=== PATIENT | male | born 1955 | race Caucasian/White ===

== ENCOUNTER 2021-02-24 13:07 | Outpatient (CLI) | payer BC, SELFPAY ==
[2021-02-24 15:09] LABS: SARS-CoV-2 RNA PCR Negative (Negative)
== END 2021-02-24 13:08 | disposition home or self-care (01) ==
LOC: CHSLAB 13:10
PROVIDERS: PCP Internal Medicine; Visit Provider Internal Medicine
DX: J06.9 Acute upper respiratory infection, unspecified (principal); Z20.822 Contact with and (suspected) exposure to COVID-19
CPT/HCPCS: C9803; U0003; U0005

== ENCOUNTER 2021-02-26 14:07 | Outpatient (CLI) | payer BC, SELFPAY ==
[2021-02-26 15:21] LABS: SARS-CoV-2 RNA PCR Positive (Negative)
== END 2021-02-26 14:08 | disposition home or self-care (01) ==
LOC: CHSLAB 14:09
PROVIDERS: PCP Internal Medicine; Visit Provider Internal Medicine
DX: U07.1 COVID-19 (principal); J06.9 Acute upper respiratory infection, unspecified
CPT/HCPCS: C9803; U0003; U0005

== ENCOUNTER 2021-02-27 12:58 | Outpatient (CLI) | payer BC, SELFPAY ==
[2021-02-27] MEDS: ACETAMINOPHEN 325 MG TABLET 650 MG PO (13:20)
[2021-02-27] MEDS: diphenhydrAMINE HCl CAP 25 MG CAPSULE PO (13:21)
[2021-02-27] MEDS: FAMOTIDINE 20 MG TABLET PO (13:21)
[2021-02-27 13:32] VITALS: BP 150/89; PULSE 88; RESP 16; TEMP 36.8; O2SAT 97
[2021-02-27 13:40] VITALS: BMI 35.2
[2021-02-27 14:35] VITALS: BP 140/80; PULSE 64; RESP 14; TEMP 37; O2SAT 97
--- NOTE | 2021-02-27 14:36 | PC.NURSE ---
Patient here for IV Casirivimab and imdevimab infusion r/t being covid + and meeting criteria. Permit signed. Education given on medication. Patient reports fatigue and dry cough. PO pre meds and IV Casirivimab and Imdevimab infusion administered SEE SEP. Tolerated well. Safe exit of hospital.
== END 2021-02-27 12:59 | disposition home or self-care (01) ==
PROVIDERS: PCP Internal Medicine; Visit Provider Internal Medicine
DX: Z23 Encounter for immunization (principal); U07.1 COVID-19
CPT/HCPCS: A9270; J7050; M0243

== ENCOUNTER 2021-11-20 15:02 | Outpatient (CLI) | payer BC, SELFPAY ==
[2021-11-20 15:58] LABS: SARS-CoV-2 RNA PCR Positive (Negative)
== END 2021-11-20 15:03 | disposition home or self-care (01) ==
LOC: CHSLAB 15:03
PROVIDERS: PCP Internal Medicine; Visit Provider Nurse Practitioner Family
DX: U07.1 COVID-19 (principal); R05.9 Cough, unspecified
CPT/HCPCS: C9803; U0003; U0005

== ENCOUNTER 2022-02-06 18:58 | Emergency (ER) | payer BC, SELFPAY ==
[2022-02-06 19:05] VITALS: BP 160/63; PULSE 78; RESP 18; TEMP 38.1; O2SAT 94
[2022-02-06] MEDS: IBUPROFEN 400 MG TABLET 800 MG PO (19:56)
[2022-02-06] MEDS: ACETAMINOPHEN 325 MG TABLET 650 MG PO (19:57)
[2022-02-06 20:12] LABS: Basophils Absolute Auto 0.05 K/mm3 (0.00-0.10); Basophils Percent Auto 0.6 % (0.0-1.0); Eosinophils Absolute Auto 0.03 K/mm3 (0.02-0.50); Eosinophils Percent Auto 0.4 % (1.0-6.0); Hematocrit 43.1 % (37.0-46.0); Hemoglobin 14.8 g/dL (12.4-15.3); Immature Granulocyte Absolute 0.02 K/mm3 (0.00-0.00); Immature Granulocyte Percent A 0.2 % (0.0-0.0); Lymphocytes Absolute Auto 0.51 K/mm3 (1.10-4.50); Lymphocytes Percent Auto 6.2 % (18.0-42.0); Mean Corpuscular HGB Conc 34.3 g/dL (32.0-36.0); Mean Corpuscular Hemoglobin 31.6 pg (27.0-31.0); Mean Corpuscular Volume 91.9 fL (78.0-102.0); Mean Platelet Volume 11.1 fl (8.7-11.0); Monocytes Absolute Auto 0.72 K/mm3 (0.10-0.90); Monocytes Percent Auto 8.7 % (2.0-11.0); Neutrophils Absolute Auto 6.9 K/mm3 (1.7-7.2); Neutrophils Percent Auto 83.9 % (50.0-70.0); Platelet Count Result 203 K/mm3 (150-420); Red Blood Count 4.69 M/mm3 (4.70-6.10); Red Cell Distribution Width 13.4 % (11.6-14.4); White Blood Count 8.2 K/mm3 (4.8-10.8)
[2022-02-06 20:32] LABS: Lactic Acid Reflex 1.1 mmol/L (0.4-2.0)
[2022-02-06 20:35] LABS: Alanine Aminotransferase 55 U/L (16-63); Albumin Level 3.6 g/dL (3.4-5.0); Alkaline Phosphatase 81 U/L (46-116); Anion Gap 11 mmol/L (8-16); Aspartate Amino Transferase 27 U/L (15-37); Bilirubin,Total 0.6 mg/dL (0.00-1.00); Blood Urea Nitrogen 19 mg/dL (7-18); Calcium 8.4 mg/dL (8.5-10.1); Carbon Dioxide 25 mmol/L (21-32); Chloride 101 mmol/L (98-108); Estimated Glomerular Filt Rate 47; Glucose 158 mg/dL (70-99); Osmolality Calculated 289 mOsm/kg (285-295); Potassium 4.5 mmol/L (3.5-5.1); Sodium 137 mmol/L (136-145); Total Protein 6.7 g/dL (6.4-8.2)
[2022-02-06 20:37] LABS: Strep Group A RT-PCR Negative (Negative)
[2022-02-06 20:41] LABS: Influenza A QL RT-PCR Negative (Negative); Influenza B QL RT-PCR Negative (Negative); SARS-CoV-2 RNA PCR Negative (Negative)
[2022-02-06] MEDS: SODIUM CHLORIDE 0.9% IV 1,000 ML 999 ML IV CONT (20:48)
[2022-02-06] MEDS: PANTOPRAZOLE SODIUM IV 40 MG VIAL IV PUSH (20:51)
[2022-02-06 20:55] VITALS: TEMP 35.8
[2022-02-06 20:57] VITALS: TEMP 35.8
--- NOTE | 2022-02-06 21:05 | PC.NURSE ---
Pt states they are refusing the CT and X-Ray at this time due to pt receiving radiation and pt and his feel they do not need it. RN educated on purpose but pt still refused. RN informed ERP who went to speak with pt and his .
--- NOTE | 2022-02-06 21:22 | PC.NURSE ---
RN confirmed after pt's labs had returned that the pt and his did not want the CT or X-ray. Pt refused stating he did not want the radiation and just wanted to finish the IV fluids. ERP notified.
--- NOTE | 2022-02-06 21:31 | ED.GENADULT ---
[facility] - General Adult General Chief complaint: Abdominal Pain Stated complaint: weakness, abd pain Time Seen by Provider: 02/06/22 18:59 Source: patient and RN notes reviewed Mode of arrival: ambulatory Limitations: no limitations History of Present Illness MD complaint: mild generalized abdominal pain and mild sore throat. Onset (ago): day(s) (1) Location: abdomen Radiation: non-radiation Severity: mild Pain Consistency: constant Relieving factors: none Exacerbating factors: none Associated symptoms: headaches and other (sore throat) Treatments prior to arrival: none Related Data Home Medications Medication Instructions Recorded Confirmed amlodipine 5 mg tablet 5 mg PO DAILY 02/27/21 02/27/21 atorvastatin 10 mg tablet 10 mg PO DAILY 02/27/21 02/27/21 metformin 500 mg tablet,extended 500 mg PO DAILY 02/27/21 02/27/21 release 24 hr Allergies Allergy/AdvReac Type Severity Reaction Status Date / Time No Known Allergies Allergy Verified 02/06/22 19:20 Review of Systems Review of Systems: All systems reviewed & are unremarkable except as noted in HPI and below Constitutional: Constitutional: Reports no additional constitutional complaints Eyes: Eyes: Reports no additional eye complaints ENT: Reports system reviewed and no additional complaints, except as documented and Reports sore throat Cardiovascular: Cardiovascular: Reports no additional cardiovascular complaints Respiratory: Respiratory: Reports no additional respiratory complaints Gastrointestinal: Gastrointestinal: Reports no additional gastrointestinal complaints and Reports abdominal pain Musculoskeletal: Musculoskeletal: Reports no additional musculoskeletal complaints and Reports myalgias Integumentary/Breasts: Skin/Breast: Reports system reviewed and no additional complaints, except as docu Neurologic: Reports system reviewed and no additional complaints, except as documented Psychiatric: Psychiatric: Reports no additional psychiatric complaints Endocrine: Endocrine: Reports no additional endocrine complaints Hematologic/Lymphatic: Hematologic/Lymphatic: Reports no additional hematologic/lymphatic complaints Allergic/Immunologic: Allergic/Immunologic: Reports no additional allergic/immunologic complaints PMFSH Past Medical History Medical History Pharyngitis Viral syndrome Social History Social History Smoking status: Never smoker Exam Const: General: healthy appearing and no acute distress Nutritional Appearance: well nourished Orientation/consciousness: patient oriented x3 Limitations: no limitations HENMT: Head: normal to inspection Ears: external ears normal, TM's normal bilaterally and EAC's normal General nose exam: Normal external nose present and Normal nares present Face and sinus: normal facial exam and sinuses nontender Mouth: Yes Normal oral and palatal mucosa present and Yes moist mucous membranes Teeth and gingiva: dentition normal Other: mild pharyngeal redness. Eyes: Conjunctivae: conjunctivae normal Pupils: Equal, round and reactive pupils present EOM: EOMs intact bilaterally Neck: Neck: normal visual inspection, no lymphadenopathy and no meningeal signs Chest: Chest palpation & inspection: normal inspection of the chest Resp: Effort & Inspection: normal respiratory effort Auscultation: clear to auscultation bilaterally Cardio: Rate: regular rate Rhythm: regular rhythm GI: GI Palp: Yes Soft to palpation and No Tenderness to palpation present (GI) Auscultation: normal bowel sounds : General: Yes bladder normal to palpation and Yes no CVA tenderness Back/Spine/Pelvis: Back: no CVA tenderness Skin: General skin exam: normal color Rashes: no rashes Wounds: no wounds Neuro: General: patient oriented x3, moves all extremities, no meningeal signs, no focal motor deficits and CN's II-
[2022-02-06 21:42] VITALS: BP 121/62; PULSE 52; RESP 16; TEMP 35.8; O2SAT 100
== END 2022-02-06 21:48 | disposition home or self-care (01) ==
PROVIDERS: Emergency Provider Emergency Medicine; PCP Internal Medicine
DX: B34.9 Viral infection, unspecified (principal); J02.9 Acute pharyngitis, unspecified; Z20.822 Contact with and (suspected) exposure to COVID-19
CPT/HCPCS: 36415; 80053; 83605; 85025; 87040; 87502; 87651; 96361; 96365; 96375; 99284; A9270; C9113; C9803; J0696; J7030; U0003; U0005

== ENCOUNTER 2022-02-09 11:24 | Outpatient (CLI) | payer BC, SELFPAY ==
--- NOTE | ~2022-02-09 | CT_ITS ---
EXAMINATION: CT abdomen pelvis wo con DATE: 02/09/2022 14:27 INDICATION: Elevated liver enzymes. 3 days of nausea. TECHNIQUE: Computed tomography (CT) of the abdomen and pelvis was performed without intravenous contr ast. Automated exposure control and iterative reconstruction technique were employed. The dose-length product was 960.44 mGy-cm. COMPARISON: None FINDINGS: Mild elevation of the left hemidiaphragm with mild left basilar atelectasis. Heart size is normal. At herosclerotic coronary artery calcification. No pericardial or pleural effusion. Diffuse hepatic stea tosis with focal sparing along the gallbladder fossa. No evident intra-axial hepatic biliary ductal d ilation. Gallbladder, spleen, pancreas and bilateral adrenal glands are normal. 6.7 cm Bosniak 2 righ t renal cyst with thin curvilinear calcification along the otherwise imperceptible internal septation . 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 No urolithia sis or hydronephrosis. Bladder is normal. Prostatomegaly measuring 5.6 x 5.2 cm . 3 small metallic de nsities along the periphery of the prostate which could represent surgical clips or brachytherapy see ds. Correlate with surgical history. There are few scattered colonic diverticula without adjacent inf lammatory change to suggest diverticulitis. Small bowel and appendix are normal. No free intraperiton eal gas or fluid. No pathologically enlarged abdominal or pelvic lymphadenopathy. Multilevel bilatera l lumbar facet osteoarthritis, moderate on the right at L5-S1 and otherwise mild. IMPRESSION: 1. Diffuse hepatic steatosis. Normal gallbladder with no evident intrahepatic or extra hepatic biliar y ductal dilation. 2. Prostatomegaly. 3. Mild diverticulosis. Reviewed, dictated and finalized at location A. IMPRESSION: 1. Diffuse hepatic steatosis. Normal gallbladder with no evident intrahepatic o r extra hepatic biliary ductal dilation. 2. Prostatomegaly. 3. Mild diverticulosis.
[2022-02-09 11:38] LABS: Basophils Absolute Auto 0.03 K/mm3 (0.00-0.10); Basophils Percent Auto 0.7 % (0.0-1.0); Eosinophils Absolute Auto 0.03 K/mm3 (0.02-0.50); Eosinophils Percent Auto 0.7 % (1.0-6.0); Hematocrit 43.1 % (37.0-46.0); Hemoglobin 14.8 g/dL (12.4-15.3); Immature Granulocyte Absolute 0.03 K/mm3 (0.00-0.00); Immature Granulocyte Percent A 0.7 % (0.0-0.0); Lymphocytes Absolute Auto 0.72 K/mm3 (1.10-4.50); Lymphocytes Percent Auto 16.8 % (18.0-42.0); Mean Corpuscular HGB Conc 34.3 g/dL (32.0-36.0); Mean Corpuscular Hemoglobin 31.4 pg (27.0-31.0); Mean Corpuscular Volume 91.3 fL (78.0-102.0); Monocytes Absolute Auto 0.34 K/mm3 (0.10-0.90); Monocytes Percent Auto 7.9 % (2.0-11.0); Neutrophils Absolute Auto 3.1 K/mm3 (1.7-7.2); Neutrophils Percent Auto 73.2 % (50.0-70.0); Platelet Count Result 190 K/mm3 (150-420); Red Blood Count 4.72 M/mm3 (4.70-6.10); Red Cell Distribution Width 13.1 % (11.6-14.4); White Blood Count 4.3 K/mm3 (4.8-10.8)
[2022-02-09 11:39] LABS: Appearance Urine Clear (Clear); Bilirubin Urine 1+ (Negative); Glucose Urine UA Negative (Negative); Ketones Urine Negative (Negative); Leukocyte Esterase Ur Negative (Negative); Nitrate Urine Negative (Negative); Protein Urine 1+ (Negative); Specific Grav Ur >= 1.030 (1.010-1.020)
[2022-02-09 11:58] LABS: Add Urine Microscopic? YES; Blood Urine Trace-lysed (Negative); Color Urine Dark Orange (Yellow)
[2022-02-09 11:59] LABS: Bacteria Urine Trace /hpf; RBC Urine 0-2 /hpf (0-2); WBC Urine None seen /hpf (0-3)
[2022-02-09 12:07] LABS: Alanine Aminotransferase 958 U/L (16-63); Albumin Level 3.5 g/dL (3.4-5.0); Alkaline Phosphatase 360 U/L (46-116); Amylase 43 U/L (25-115); Anion Gap 12 mmol/L (8-16); Aspartate Amino Transferase 414 U/L (15-37); Bilirubin,Total 1.2 mg/dL (0.00-1.00); Blood Urea Nitrogen 20 mg/dL (7-18); Calcium 9.1 mg/dL (8.5-10.1); Carbon Dioxide 24 mmol/L (21-32); Chloride 101 mmol/L (98-108); Estimated Glomerular Filt Rate 42; Glucose 183 mg/dL (70-99); Lipase 88 U/L (73-393); Osmolality Calculated 291 mOsm/kg (285-295); Potassium 4.1 mmol/L (3.5-5.1); Prostate Specific Antigen 4.7 ng/mL (< OR = 4.0); Sodium 137 mmol/L (136-145); Total Protein 6.8 g/dL (6.4-8.2)
[2022-02-09 12:10] LABS: Hemoglobin A1C 6.7 % (<5.7)
[2022-02-13 18:55] LABS: Hepatitis A Antibody IgM Nonreactive; Hepatitis B Core Antibody Nonreactive (Nonreactive); Hepatitis B Surface Antigen Nonreactive (Nonreactive); Hepatitis C Signal to Cutoff 0.06 ratio (<1.00); Hepatitis C Virus Antibody Nonreactive (Nonreactive)
== END 2022-02-09 11:25 | disposition home or self-care (01) ==
PROVIDERS: PCP Internal Medicine; Visit Provider Internal Medicine
DX: R11.0 Nausea (principal); R94.5 Abnormal results of liver function studies; N39.0 Urinary tract infection, site not specified; E11.9 Type 2 diabetes mellitus without complications; C61 Malignant neoplasm of prostate; R74.01 Elevation of levels of liver transaminase levels
CPT/HCPCS: 36415; 74176; 80053; 80074; 81001; 82150; 83036; 83690; 84153; 85025; 87086

== ENCOUNTER 2022-02-16 08:04 | Outpatient (CLI) | payer BC, SELFPAY ==
[2022-02-16 09:58] LABS: Alanine Aminotransferase 187 U/L (16-63); Albumin Level 3.8 g/dL (3.4-5.0); Alkaline Phosphatase 208 U/L (46-116); Anion Gap 11 mmol/L (8-16); Aspartate Amino Transferase 28 U/L (15-37); Bilirubin,Total 0.7 mg/dL (0.00-1.00); Blood Urea Nitrogen 25 mg/dL (7-18); Calcium 9.3 mg/dL (8.5-10.1); Carbon Dioxide 28 mmol/L (21-32); Chloride 103 mmol/L (98-108); Estimated Glomerular Filt Rate 56; Glucose 142 mg/dL (70-99); Osmolality Calculated 300 mOsm/kg (285-295); Potassium 4.6 mmol/L (3.5-5.1); Sodium 142 mmol/L (136-145); Total Protein 6.9 g/dL (6.4-8.2)
== END 2022-02-16 08:05 | disposition home or self-care (01) ==
LOC: CHSLAB 08:06
PROVIDERS: PCP Internal Medicine; Visit Provider Internal Medicine
DX: R94.5 Abnormal results of liver function studies (principal)
CPT/HCPCS: 36415; 80053

== ENCOUNTER 2022-03-24 10:16 | Outpatient (CLI) | payer BC, SELFPAY ==
[2022-03-24 10:52] LABS: Alanine Aminotransferase 29 U/L (16-63); Alkaline Phosphatase 96 U/L (46-116); Anion Gap 7 mmol/L (8-16); Aspartate Amino Transferase 15 U/L (15-37); Bilirubin,Total 0.5 mg/dL (0.00-1.00); Blood Urea Nitrogen 19 mg/dL (7-18); Calcium 9.6 mg/dL (8.5-10.1); Carbon Dioxide 29 mmol/L (21-32); Chloride 103 mmol/L (98-108); Estimated Glomerular Filt Rate 58; Glucose 142 mg/dL (70-99); Osmolality Calculated 292 mOsm/kg (285-295); Potassium 4.8 mmol/L (3.5-5.1); Sodium 139 mmol/L (136-145); Total Protein 6.6 g/dL (6.4-8.2)
== END 2022-03-24 10:17 | disposition home or self-care (01) ==
LOC: CHSLAB 10:18
PROVIDERS: PCP Internal Medicine; Visit Provider Internal Medicine
DX: R94.5 Abnormal results of liver function studies (principal)
CPT/HCPCS: 36415; 80053

== ENCOUNTER 2022-06-17 08:16 | Outpatient (CLI) | payer BC, SELFPAY ==
[2022-06-17 08:42] LABS: Hemoglobin A1C 6.5 % (<5.7)
[2022-06-17 09:53] LABS: Anion Gap 8 mmol/L (8-16); Aspartate Amino Transferase 21 U/L (15-37); Bilirubin,Total 0.5 mg/dL (0.00-1.00); Blood Urea Nitrogen 18 mg/dL (7-18); Calcium 9.1 mg/dL (8.5-10.1); Carbon Dioxide 31 mmol/L (21-32); Chloride 107 mmol/L (98-108); Estimated Glomerular Filt Rate > 60; Glucose 158 mg/dL (70-99); Osmolality Calculated 306 mOsm/kg (285-295); Potassium 4.5 mmol/L (3.5-5.1); Sodium 146 mmol/L (136-145)
[2022-06-17 09:54] LABS: Alanine Aminotransferase 46 U/L (16-63); Albumin Level 3.7 g/dL (3.4-5.0); Alkaline Phosphatase 94 U/L (46-116); Cholesterol 139 mg/dL (0-200); HDL Direct 38 mg/dL (40-60); LDL Cholesterol Calculated 73 mg/dL (<130); Total Protein 6.4 g/dL (6.4-8.2); Triglycerides 139 mg/dL (0-150)
== END 2022-06-17 08:17 | disposition home or self-care (01) ==
LOC: CHSLAB 08:18
PROVIDERS: PCP Internal Medicine; Visit Provider Internal Medicine
DX: E78.2 Mixed hyperlipidemia (principal); R73.01 Impaired fasting glucose
CPT/HCPCS: 36415; 80053; 80061; 83036

== ENCOUNTER 2022-08-29 16:56 | Emergency (ER) | payer BC, SELFPAY ==
--- NOTE | ~2022-08-29 | CT_ITS ---
EXAMINATION: CT brain wo con DATE: 08/29/2022 18:03 INDICATION: Dizziness, vertigo . TECHNIQUE: Computed tomography (CT) of the head was performed without intravenous contrast. The mA wa s adjusted according to patient size. Iterative reconstruction technique was employed. The dose-lengt h product was 605.33 mGy-cm. COMPARISON: 01/26/2019. FINDINGS: No acute intracranial hemorrhage or extra-axial fluid collection. No hydrocephalus, mass, or herniation. No acute ischemic infarct. Unremarkable dural venous sinus attenuation. No acute osseous abnormality. The aerated spaces are clear. IMPRESSION: No acute intracranial process. Reviewed, dictated and finalized at location K. OND PICKER
[2022-08-29 16:57] VITALS: BP 164/61; PULSE 82; RESP 16; TEMP 36.7; O2SAT 100
[2022-08-29 17:06] LABS: Glucose Point of Care 157 mg/dl (65-105)
--- NOTE | 2022-08-29 17:36 | ECG_ITS ---
Measurements Intervals [place] Rate: 50 P: 24 OR: 173 QRS: -52 QRSD: 114 T: -30 QT: 463 QTc: 425 Interpretive Statements SINUS BRADYCARDIA LEFT ANTERIOR FASCICULAR BLOCK MODERATE ST DEPRESSION ISCHEMIA INFERIOR LEADS ABNORMAL ECG NO PREVIOUS ECG AVAILABLE FOR COMPARISON Electronically Signed On 08-30-2022 14:33:43 FRAME ALIGNER by Popeye Lino M.D.
[2022-08-29] MEDS: PROMETHAZINE HCL 25 MG/ML AMPUL 12.5 MG IM ×2 (17:45→19:33)
[2022-08-29 17:57] LABS: Basophils Absolute Auto 0.05 K/mm3 (0.00-0.10); Basophils Percent Auto 0.4 % (0.0-1.0); Eosinophils Absolute Auto 0.01 K/mm3 (0.02-0.50); Eosinophils Percent Auto 0.1 % (1.0-6.0); Hematocrit 43.7 % (37.0-46.0); Hemoglobin 14.8 g/dL (12.4-15.3); Immature Granulocyte Absolute 0.06 K/mm3 (0.00-0.00); Immature Granulocyte Percent A 0.5 % (0.0-0.0); Lymphocytes Absolute Auto 0.49 K/mm3 (1.10-4.50); Lymphocytes Percent Auto 4.3 % (18.0-42.0); Mean Corpuscular HGB Conc 33.9 g/dL (32.0-36.0); Mean Corpuscular Hemoglobin 31.1 pg (27.0-31.0); Mean Corpuscular Volume 91.8 fL (78.0-102.0); Mean Platelet Volume 11.7 fl (8.7-11.0); Monocytes Percent Auto 4.4 % (2.0-11.0); Neutrophils Absolute Auto 10.4 K/mm3 (1.7-7.2); Neutrophils Percent Auto 90.3 % (50.0-70.0); Platelet Count Result 250 K/mm3 (150-420); Red Blood Count 4.76 M/mm3 (4.70-6.10); Red Cell Distribution Width 12.8 % (11.6-14.4); White Blood Count 11.5 K/mm3 (4.8-10.8)
[2022-08-29 18:12] LABS: Alanine Aminotransferase 59 U/L (16-63); Alkaline Phosphatase 113 U/L (46-116); Anion Gap 9 mmol/L (8-16); Aspartate Amino Transferase 31 U/L (15-37); Bilirubin,Total 0.6 mg/dL (0.00-1.00); Blood Urea Nitrogen 20 mg/dL (7-18); Calcium 9.1 mg/dL (8.5-10.1); Carbon Dioxide 29 mmol/L (21-32); Chloride 104 mmol/L (98-108); Estimated CRCL calculation 64 ml/min; Estimated Glomerular Filt Rate > 60; Glucose 192 mg/dL (70-99); Osmolality Calculated 301 mOsm/kg (285-295); Potassium 3.9 mmol/L (3.5-5.1); Sodium 142 mmol/L (136-145); Total Protein 7.2 g/dL (6.4-8.2)
[2022-08-29] MEDS: methylPREDNISolone ACETATE 40 MG/ML VIAL 80 MG IM (19:12)
--- NOTE | 2022-08-29 19:17 | ED.DIZZY ---
HPI - Dizziness General Chief Complaint: Dizziness Stated Complaint: Vertigo Source: patient Mode of arrival: ambulatory Limitations: no limitations History of Present Illness HPI Narrative: This is a 67-year-old gentleman with a history of hypertension and diabetes presents with some dizziness, was some working underneath a car earlier today and when moving his head from side to side started become dizzy and was having a difficult time with his balance. Otherwise there is no fever chills no headache no blurry vision does feel that there is some left ear pressure with no neurological deficits no chest pain no shortness of breath. Patient typically has meclizine but felt like it did not help as much as it typically helps him. MD elicited complaint: dizziness Onset (ago): hour(s) Timing: gradual onset Severity: moderate Description: sense of movement and off-balance Related Data Home Medications Medication Instructions Recorded Confirmed amlodipine 5 mg tablet 5 mg PO DAILY 02/27/21 02/27/21 atorvastatin 10 mg tablet 10 mg PO DAILY 02/27/21 02/27/21 metformin 500 mg tablet,extended 500 mg PO DAILY 02/27/21 02/27/21 release 24 hr Allergies Allergy/AdvReac Type Severity Reaction Status Date / Time Sulfa (Sulfonamide Allergy Unknown Verified 08/29/22 17:16 Antibiotics) sulfamethoxazole Allergy Unknown Verified 08/29/22 17:16 [From Bactrim] trimethoprim [From Bactrim] Allergy Unknown Verified 08/29/22 17:16 Review of Systems Review of Systems: All systems reviewed & are unremarkable except as noted in HPI and below PMFSH Past Medical History Medical History Pharyngitis Viral syndrome Social History Social History Smoking status: Never smoker Exam Const: General: healthy appearing Nutritional Appearance: well nourished Orientation/consciousness: patient oriented x3 Limitations: no limitations HENMT: Head: normal to inspection Ears: TM's normal bilaterally Face/Nose/Sinus: Normal external nose present Mouth: Yes Normal oral and palatal mucosa present Eyes: Conjunctivae: conjunctivae normal Pupils: Equal, round and reactive pupils present EOM: EOMs intact bilaterally Neck: Neck: normal visual inspection, no lymphadenopathy and no meningeal signs Chest: Chest palpation & inspection: normal inspection of the chest Resp: Effort & Inspection: normal respiratory effort Auscultation: clear to auscultation bilaterally Cardio: Rate: regular rate Rhythm: regular rhythm GI: GI Palp: Yes Soft to palpation Auscultation: normal bowel sounds : General: Yes bladder normal to palpation Urinary Catheter: Urinary Catheter: patent and draining Back/Spine/Pelvis: Back: no CVA tenderness Skin: General skin exam: normal color Rashes: no rashes Wounds: no wounds Neuro: General: patient oriented x3, moves all extremities, no meningeal signs and no focal motor deficits Cranial nerves: Yes Nystagmus not present Speech: normal speech Extrem: General: normal to inspection and no clubbing, cyanosis or edema Psych: Mental Status: mental status grossly normal Affect: normal affect Attitude: cooperative Course Course Emergency Course: Labs EKG and CT scans reviewed which showed no abnormalities, EKG does show sinus bradycardia which is typical for him according to him and his . Otherwise he received IM Phenergan which he states has improved his dizziness as well as IM Depo-Medrol. Vital Signs Vital signs: Vital Signs Temperature 36.7 C 08/29/22 16:57 Pulse Rate 82 08/29/22 16:57 Respiratory Rate 16 08/29/22 16:57 Blood Pressure 164/61 H 08/29/22 16:57 Pulse Oximetry 100 08/29/22 16:57 Oxygen Delivery Room Air 08/29/22 16:57 Temperature 36.7 C 08/29/22 16:57 Pulse Rate 82 08/29/22 16:57 Respiratory Rate 16 08/29/22 16:57 Blood Pressure 16
[2022-08-29 20:45] VITALS: BP 136/80; PULSE 80; RESP 20; TEMP 37.1; O2SAT 100
== END 2022-08-29 20:48 | disposition home or self-care (01) ==
PROVIDERS: Emergency Provider Emergency Medicine; PCP Internal Medicine
DX: R42 Dizziness and giddiness (principal); I10 Essential (primary) hypertension; E11.9 Type 2 diabetes mellitus without complications
CPT/HCPCS: 36415; 70450; 80053; 82948; 85025; 93005; 96372; 99284; J1030; J2550

== ENCOUNTER 2022-09-02 16:45 | Outpatient (RCR) | payer BC, SELFPAY ==
--- NOTE | 2022-09-02 17:28 | PTOPEVDC ---
Assessment and note entered by JT File, PT Thank you for referring Júnior Booker to [facility].? An evaluation has been completed. No further treatment is needed. Evaluation Information Assessment Status Evaluation Diagnosis BPPV Onset 08/31/22 Subjective Information patient reports he has had vertigo in the past. he reports the last time he had this was back in 2019. he reports in the past he has been able to manage with meds and needing no other treatment. however, this time does not seem to be the same. he reports the L ear feels like it is clogged. he reports wednesday he had the L ear cleaned out by the MD. he reports since then he has felt more steady. he reports looking up to the roof of his shed caused him symptoms, and then rolling over in bed caused his symptoms. easch time it would resolve itself after a minute or so. he reports the dizziness has made him puke. Reported Pain Level Pain Score 0: Self Report Assessment PT Clinical Summary mr. booker is a 67 yo man who presents to skilled PT services for evaluation and treatment of vertigo from possible BPPV. he presents this date negative for any vertigo or nystagmus. he presents with no orthostasis. he was educated in home lacey manuever and sleeping position for treatment of return of symptoms if occurs at home. no further treatment is needed at this time. patient was told to follow up with PT/MD if symptoms returned prior to starting medication again. Plan of Care Treatment Frequency and DC to independent HEP Duration
== END 2022-09-02 17:51 | disposition home or self-care (01) ==
LOC: CHSPT 16:45
PROVIDERS: PCP Internal Medicine; Visit Provider Internal Medicine
DX: R42 Dizziness and giddiness (principal)
CPT/HCPCS: 97161

== ENCOUNTER 2023-01-15 11:13 | Emergency (ER) | payer BC, SELFPAY ==
--- NOTE | 2023-01-15 11:20 | ED.WOUNDLAC ---
HPI - Wound/Laceration General Chief Complaint: Wound/Laceration Stated Complaint: L Leg Laceration Time Seen by Provider: 01/15/23 11:15 Source: patient and RN notes reviewed Mode of arrival: ambulatory Limitations: no limitations History of Present Illness HPI narrative: patient states that a piece of farm equipment, a plow, fell over onto his leg scraping his left forearm on the way down. Movement of his leg in his forearm caused pain otherwise rest relieves the pain. tetanus is up-to-date 2019 Onset (ago): minute(s) (30) Extremity Location: Left: forearm and lower leg Place: home Patient tetanus UTD: Yes Context: accidental Associated symptoms: none Treatments prior to arrival: bandage Related Data Home Medications Medication Instructions Recorded Confirmed atorvastatin 10 mg tablet 10 mg PO DAILY 02/27/21 01/15/23 metformin 500 mg tablet,extended 500 mg PO DAILY 02/27/21 01/15/23 release 24 hr losartan 50 mg-hydrochlorothiazide 1 tablet PO DAILY 01/15/23 01/15/23 12.5 mg tablet Allergies Allergy/AdvReac Type Severity Reaction Status Date / Time Sulfa (Sulfonamide Allergy Unknown Verified 08/29/22 17:16 Antibiotics) sulfamethoxazole Allergy Unknown Verified 08/29/22 17:16 [From Bactrim] trimethoprim [From Bactrim] Allergy Unknown Verified 08/29/22 17:16 Review of Systems Review of Systems: All systems reviewed & are unremarkable except as noted in HPI and below PMFSH Past Medical History Medical History (Updated 01/15/23 @ 12:07 by Chuck Aviles MD) Hyperlipidemia Hypertension Pharyngitis Type 2 diabetes mellitus Viral syndrome Surgical History Surgical History (Updated 01/15/23 @ 13:42 by Chuck Aviles MD) No pertinent past surgical history Social History Social History Smoking status: Never smoker Exam Const: General: healthy appearing, no acute distress and alert Nutritional Appearance: well nourished Orientation/consciousness: patient oriented x3 Limitations: no limitations HENMT: Head: normal to inspection Ears: external ears normal Face/Nose/Sinus: Normal external nose present Face and sinus: normal facial exam Mouth: Yes moist mucous membranes Eyes: Conjunctivae: conjunctivae normal Pupils: Equal, round and reactive pupils present EOM: EOMs intact bilaterally Neck: Neck: normal visual inspection Resp: Effort & Inspection: normal respiratory effort Auscultation: clear to auscultation bilaterally Cardio: Rate: bradycardic Rhythm: regular rhythm GI: GI Palp: Yes Soft to palpation and No Tenderness to palpation present (GI) Auscultation: normal bowel sounds Back/Spine/Pelvis: Cervical Spine: cervical ROM normal Thoracic/Lumbar Spine: thoraco-lumbar ROM normal Skin: General skin exam: normal color Rashes: no rashes Wounds: wounds noted laceration left anterior lower leg size (6.5 cm), margins well approximated and open, laceration left anterior forearm size (2 cm), margins well approximated and open Neuro: General: patient oriented x3, moves all extremities, no focal motor deficits and CN's II-XI intact bilaterally Speech: normal speech Gait exam (Neuro): Normal gait present Extrem: General: normal to inspection and no clubbing, cyanosis or edema Psych: Mental Status: mental status grossly normal Affect: normal affect Attitude: cooperative Course Vital Signs Vital signs: Vital Signs Temperature 36.8 C 01/15/23 11:53 Pulse Rate 49 L 01/15/23 11:53 Respiratory Rate 19 01/15/23 11:53 Blood Pressure 104/53 L 01/15/23 11:53 Pulse Oximetry 98 01/15/23 11:53 Oxygen Delivery Room Air 01/15/23 11:53 Temperature 36.8 C 01/15/23 11:53 Pulse Rate 82 01/15/23 12:15 Respiratory Rate 20 01/15/23 12:15 Blood Pressure 117/52 L 01/15/23 12:15 Pulse Oximetry 97 01/15/23 12:15 Oxygen Delivery Room Air 01/15/23 12:15 Procedures Laceration Laceration 1
[2023-01-15] MEDS: LIDO 1%/EPINEPHRINE 1:100,000 20 ML VIAL 40 ML (11:37)
[2023-01-15] MEDS: NEOMYCIN/POLYMYXIN/BACITRACIN OINTMENT PACKET 2 PACKET TOPICAL (11:38)
[2023-01-15 11:53] VITALS: BP 104/53; PULSE 49; RESP 19; TEMP 36.8; O2SAT 98
[2023-01-15 12:15] VITALS: BP 117/52; PULSE 82; RESP 20; O2SAT 97
== END 2023-01-15 12:22 | disposition home or self-care (01) ==
PROVIDERS: Emergency Provider Emergency Medicine; PCP Internal Medicine
DX: S81.812A Laceration without foreign body, left lower leg, initial encounter (principal); S51.812A Laceration without foreign body of left forearm, initial encounter; E78.5 Hyperlipidemia, unspecified; I10 Essential (primary) hypertension; E11.9 Type 2 diabetes mellitus without complications; Z79.84 Long term (current) use of oral hypoglycemic drugs; W22.8XXA Striking against or struck by other objects, initial encounter; Y92.009 Unspecified place in unspecified non-institutional (private) residence as the place of occurrence of the external cause
CPT/HCPCS: 12034; 99283

== ENCOUNTER 2023-05-18 07:26 | Outpatient (CLI) | payer BC, SELFPAY ==
--- NOTE | ~2023-05-18 | US_ITS ---
EXAMINATION: US retroperitoneal comp DATE: 05/18/2023 12:37 INDICATION: Elevated creatinine TECHNIQUE: Multiple ultrasound grayscale images of the kidneys were obtained. COMPARISON: None. FINDINGS: The right kidney measures 11.9 x 5.6 x 5.0 cm. The left kidney measures 13.2 x 4.6 x 5.6 cm. The kidn eys demonstrate normal echogenicity. Clusters of anechoic cyst indiscernible intervening septum at th e mid right kidney, the largest measuring 5.7 cm. There is no hydronephrosis in either kidney. No st ones identified. There is wall thickening of the bladder with trabeculated mucosal surface regularity to chronic outlet obstruction from the enlarged prostate which measures 5.5 x 5.4 cm. IMPRESSION: 1. Right renal cysts measuring up to 5.7 cm. Otherwise normal kidneys with no hydronephrosis. 2. Mild bladder wall thickening with trabeculated mucosal surface likely related to chronic outlet ob struction from the enlarged prostate which measures 5.5 x 5.4 cm. Reviewed, dictated and finalized at location A. ING TANK OPERATOR IMPRESSION: 1. Right renal cysts measuring up to 5.7 cm. Otherwise normal kidneys with no hydronephrosis. 2. Mild bladder wall thickening with trabeculated mucosal surface likely relate d to chronic outlet obstruction from the enlarged prostate which measures 5.5 x 5.4 cm.
== END 2023-05-18 07:27 | disposition home or self-care (01) ==
LOC: CHSIMG 07:27
PROVIDERS: PCP Internal Medicine; Visit Provider Internal Medicine
DX: N28.1 Cyst of kidney, acquired (principal); R93.41 Abnormal radiologic findings on diagnostic imaging of renal pelvis, ureter, or bladder; N40.0 Benign prostatic hyperplasia without lower urinary tract symptoms
CPT/HCPCS: 76770

== ENCOUNTER 2025-05-18 12:32 | Outpatient (CLI) | payer BC, SELFPAY ==
--- NOTE | ~2025-05-18 | US_ITS ---
EXAM/PROCEDURE: US renal BI HISTORY: CKD COMPARISON: May 18, 2023 TECHNIQUE: Bilateral renal ultrasound FINDINGS: Right kidney: 12.0 x 4.4 x 5.3 cm. 6.3 cm mildly complex cyst or cyst with septations not grossly changed from the previous exam. No hydronephrosis, or suspicious renal masses. Left kidney: 12.0 x 3.7 x 5.9 cm and stable in appearance. No hydronephrosis or perinephric fluid collection. Echotexture for both kidneys appears mildly increased. Limited visualization of the urinary bladder probably mild diffuse wall thickening. IMPRESSION: Stable appearance of both kidneys with increased echotexture suggesting underlying medical renal disease. Urinary bladder wall thickening; correlate with urinalysis to exclude cystitis. Reviewed, dictated and finalized at location A. [facility] IMPRESSION: Stable appearance of both kidneys with increased echotexture suggesting underly ing medical renal disease. Urinary bladder wall thickening; correlate with urin alysis to exclude cystitis.
--- OUTSIDE RECORDS SUMMARY | 2025-05-18 12:41 | XMS_ITS | Encounter Summary ---
Author Organization [facility] Address [address] [place] [address] Phone Care Team Providers Care Air Drill Operator Name Role Phone Faith Hernandez MD Primary Care Provider [phone] Mat Epstein MD Unavailable Encounter Details Date Type Department Care Team (Latest Contact Info) Description 01/06/2022 Orders Only [facility] Scanning, Provider Social History Tobacco Use Types Packs/Day Years Used Date Smoking Tobacco: Never Smokeless Tobacco: Never Alcohol Use Standard Drinks/Week Comments No 0 (1 standard drink = 0.6 oz pur e alcohol) Sex and Gender Information Value Date Recorded Sex Assigned at Not on file 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 Gender Identity Not on file Sexual Orientation Not on file documented as of this encounter Plan of Treatment Not on file documented as of this encounter Procedures Procedure Name Priority Date/Time Associated Diagnosis Comments SCAN - LABS 01/06/2022 documented in this encounter Results * SCAN - LABS (01/06/2022) us Provider Scanning Final Result documented in this encounter Visit Diagnoses Not on filedocumented in this encounter Care Teams Air Drill Operator Relationship Specialty Start Date End Date Faith Hernandez MD [address] [place] [address] PCP - General 02/11/15 Mat Epstein MD [address] [place] [address] Consulting Physician Cardiology 05/04/22 documented as of this encounter
--- OUTSIDE RECORDS SUMMARY | 2025-05-18 12:41 | XMS_ITS | Clinical Summary ---
Author Organization [facility] Address [address] [place] [address] Care Team Providers Care Chief Orthoptist Name Role Phone Faith Hernandez MD Primary Care Provider [phone] Fitz Shipman MD Unavailable [phone] Source Comments [facility],non-owned Affiliates and Associated Physician Practices is amultiple site organization consisting of ambulatory clinics and hospital sitesin [place], [place], [place] and [place]. This disclosure is being madepursuant to the Care Everywhere program and may not contain all information available regarding this patient. Last updated 18.[facility] Allergies No known active allergies Medications * Be aware that medications may not be up to date on this document. Alwaysverify current medications with the patient. Other STATES HE TAKES GREEN SUPPLEMENTS HE ORDERS ON LINE. Active Other A PROSTATE HEALTH PILL OTC Active Active Problems Problem Noted Date Diagnosed Date Elevated PSA 03/25/2017 Family History Medical History Relation Name Comments Cancer - Prostate Father Diabetes Father Hypertension Father Kidney Stones Father [place] Father Cancer - Breast Mother Diabetes Mother Hypertension Mother Relation Name Status Comments Father Mother Social History Tobacco Use Types Packs/Day Years Used Date Smoking Tobacco: Never Smokeless Tobacco: Never Alcohol Use Standard Drinks/Week Comments No 0 (1 standard drink = 0.6 oz pur e alcohol) Sex and Gender Information Value Date Recorded Sex Assigned at Not on file 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 Gender Identity Not on file Sexual Orientation Not on file Last Filed Vital Signs Vital Sign Reading Time Taken Comments Blood Pressure 164/70 11/03/2018 1:48 PM CDT Pulse 62 11/03/2018 1:48 PM CDT Temperature 36.4 C (97.5 F) 04/08/2017 10:56 AM CDT Respiratory Rate 16 04/08/2017 10:56 AM CDT Oxygen Saturation 95% 04/08/2017 10:56 AM CDT Inhaled Oxygen Concentration - - Weight 97.1 kg (214 lb) 05/11/2019 1:05 PM CDT Height 177.8 cm (5' 10) 05/11/2019 1:05 PM CDT Body Mass Index 30.71 05/11/2019 1:05 PM CDT Plan of Treatment Health Maintenance Due Date Last Done Comments COLOGUARD (AGES 45-75) - COL ON CA SCREENING 1955 COLON MONITORING 1953 COLONOSCOPY - COLON CA SCREENING 1953 CT COLONOGRAPHY - COLON CA SCREENING 1953 Colorectal Cancer Screening 1953 FIT - COLON CA SCREENING 1953 FLEX SIG - COLON CA SCREENING 1953 LIPID TESTING 1953 HEPATITIS C SCREENING 03/22/1971 DTAP/TDAP/TD VACCINES (1 - Tdap) 1972 PNEUMOCOCCAL VACCINE 50+ (1 of 1 - PCV) 2003 ZOSTER VACCINE (1 of 2) 2003 SCREENING FOR DIABETES 05/11/2019 DEPRESSION SCREENING 07/12/2024 COVID-19 VACCINE (1 - 2023-2 5 season) 2025 INFLUENZA VACCINE (#1) 2025 Respiratory Syncytial Virus (RSV) Vaccine Pt: or over 60 yrs (1 - 1-dose 75+ series) 2028 HEPATITIS B VACCINE Aged Out No longe r eligible based on patient's age to complete this topic HIB VACCINE Aged Out No longer eligi ble based on patient's age to complete this topic HPV VACCINE Aged Out No longer eligi ble based on patient's age to complete this topic MENINGOCOCCAL (Group B) VACC INE SHARED DECISION-MAKING Aged Out No longer eligibl e based on patient's age to complete this topic MENINGOCOCCAL GROUPS A/C/Y/W VACCINE Aged Out No longer eligible b ased on patient's age to complete this topic Insurance [facility] Care Teams Chief Orthoptist Relationship Specialty Start Date End Date Faith Hernandez MD PCP - General Internal Medicine 07/22/16 Fitz Shipman MD Urology 07/22/16
--- OUTSIDE RECORDS SUMMARY | 2025-05-18 12:41 | XMS_ITS | Clinical Summary ---
Author Organization [facility] D Address [address] [place] [address] Care Team Providers Care Rehabilitation Psychologist Name Role Phone Faith Hernandez MD Primary Care Provider Mat Epstein MD Unavailable Allergies No known active allergies Medications fluticasone propionate (FLONASE) 50 mcg/actuation nasal spray 07/27/2019 Active cetirizine (ZyrTEC) 10 mg tablet Take 10 mg by mouth daily Active indomethacin (INDOCIN) 50 mg capsule Take 50 mg by mouth PRN for gout flair 03/03/2020 Active atorvastatin (LIPITOR) 10 mg tablet 05/08/2021 Active metFORMIN XR (GLUCOPHAGE XR) 500 mg 24 hr tablet 04/08/2021 Active amLODIPine (NORVASC) 10 mg tablet TAKE ONE TABLET BY MOUTH DAILY 32 tablet 06/29/2022 Active losartan (COZAAR) 25 mg tablet Take 1 tablet (25 mg total) by mouth daily 90 tablet 3 07/30/2022 Active Active Problems Problem Noted Date Diagnosed Date Other hyperlipidemia 05/11/2021 Assessment & Plan (05/11/2021 7:06 PM CDT): Point of care testing today reveals LDL 66 on atorvastatin 10 mg daily which he should continue. Essential hypertension 09/10/2019 Assessment & Plan (05/11/2021 7:00 PM CDT): Blood pressure is not controlled. Will increase amlodipine from 5 mg daily to 10 mg daily. He is to monitor blood pressure at home and update me on readings in two weeks. Assessment & Plan (05/03/2020 9:35 AM CDT): Non compliant with treatment. The symptoms he describes from amlodipine are as unexpected as the symptoms he described from lisinopril hydrochlorothiazide. I explained the risks of untreated hypertension including stroke, heart attack, congestive heart failure, and kidney failure. I offered to prescribe an ARB as we are running out of options to control his blood pressure without lowering his heart rate. He prefers to try amlodipine again. I recommended nighttime dosing. I advised him to monitor his blood pressure and call me if it is not consistently 130/70 or lower, or if he does not tolerate amlodipine. Assessment & Plan (09/10/2019 4:06 PM ADMIN DIR): His reaction to lisinopril hydrochlorothiazide was unusual. He was reassured that amlodipine is on like lisinopril hydrochlorothiazide and he should tolerate it well. It should not affect his heart rate. He would not be a candidate for beta- blockers or diltiazem. Bradycardia 03/30/2017 Assessment & Plan (05/11/2021 7:00 PM CDT): Sick sinus syndrome, asymptomatic. No indication for a pacemaker. Assessment & Plan (05/03/2020 9:33 AM CDT): Long history of mild bradycardia, well tolerated and stable. Assessment & Plan (09/10/2019 4:06 PM ADMIN DIR): Asymptomatic sick sinus syndrome. Need to avoid medications which could slow his heart rate. Assessment & Plan (04/28/2019 9:23 AM CDT): Long history of mild sinus bradycardia, asymptomatic, and stable by Holter. We reviewed again the symptoms for which he should notify me. I will plan to see him again in one year, but in the absence of any symptoms will go three years before repeating his Holter. Assessment & Plan (04/29/2018 1:17 PM CDT): Bradycardia is asymptomatic and stable. There is no indication for pacemaker at this time. I will see him again in one year and will obtain a 24 hr Holter prior to that visit. He knows to let me know should he develop any lightheadedness or dizziness or any marked change in his resting heart rate. Assessment & Plan (03/30/2017 12:05 PM CDT): Long history of sinus bradycardia, extensively evaluated. He is completely asymptomatic. He knows the warning signs to call me about. I do not anticipate any problems with his upcoming prostate biopsy. Cardiac arrhythmia 02/11/2015 Overview (10/15/2016): Conduction disorder of the heart Surgical History Surgery Date Site/Laterality Comments COLONOSCOPY Medical History Medical History Date Comments Bradycardia Arrhythmia Diabetes mellitus Hyperlipidemia Family History Medical History Relation Name Comments Coronary artery disease Father Praveen nary artery disease; Relation Name Status Comments Father Social History Tobacco Use Types Packs/Day Years Used Date Smoking Tobacco: Never Smokeless Tobacco: Never Alcohol Use Standard Drinks/Week Comments No 0 (1 standard drink = 0.6 oz pur e alcohol) Personal Safety Answer Date Recorded Getting School Help Needed Not on file 08/02 Sex and Gender Information Value Date Recorded Sex Assigned at Not on file Legal Sex Male 9:08 PM ADMIN DIR Gender Identity Not on file Sexual Orientation Not on file Last Filed Vital Signs Vital Sign Reading Time Taken Comments Blood Pressure 130/62 07/30/2022 1:33 PM ADMIN DIR Pulse 51 07/30/2022 1:33 PM ADMIN DIR Temperature - - Respiratory Rate - - Oxygen Saturation 96% 07/30/2022 1:33 PM ADMIN DIR Inhaled Oxygen Concentration - - Weight 107.5 kg (237 lb) 07/30/2022 1:33 PM ADMIN DIR Height 167.6 cm (5' 5.98) 07/30/2022 1:33 PM CS T Body Mass Index 38.27 07/30/2022 1:33 PM ADMIN DIR Plan of Treatment Health Maintenance Due Date Last Done Comments Colon Cancer Screening-Colonoscopy 1955 Depression Screening 1955 Fall Risk Assessment 1955 Hepatitis C Screening 1955 Hepatitis B Screening 1971 Abdominal Aortic Aneurysm (AAA) Screen 2018 Well Visit 65+ 2018 Pneumococcal vaccine 65+ (2 of 2 - PCV20 or PCV21) 07/26/2019 07/26/2018 Influenza Vaccine (#1) 2025 06/27/2013, 2012 DTaP/Tdap/Td Vaccine (2 - Td or Tdap) 07/26/2028 Zoster Vaccine Completed 02/20/2019, 07/26/2018 [place] [place] Care Teams Rehabilitation Psychologist Relationship Specialty Start Date End Date Faith Hernandez MD [address] [phone] PCP - General 02/11/15 Mat Epstein MD [address] [place] [address] Consulting Physician Cardiology 05/04/22
--- OUTSIDE RECORDS SUMMARY | 2025-05-18 12:41 | XMS_ITS | Encounter Summary ---
Author Organization [facility] Address [address] [place] [address] Care Team Providers Care Professor Of Law Name Role Phone Faith Hernandez MD Primary Care Provider [phone] Fitz Shipman MD Unavailable [phone] Encounter Details Date Type Department Care Team (Late st Contact Info) Description 11/25/2023 Lab Requisition [facility] - DermPath Lab [address] [facility] [place] [address] Bety Gutierrez MD [address] [facility] [address] DEPT [place] [address] Social History Tobacco Use Types Packs/Day Years Used Date Smoking Tobacco: Never Smokeless Tobacco: Never Alcohol Use Standard Drinks/Week Comments No 0 (1 standard drink = 0.6 oz pur e alcohol) Sex and Gender Information Value Date Recorded Sex Assigned at Not on file 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 Gender Identity Not on file Sexual Orientation Not on file documented as of this encounter Plan of Treatment Not on file documented as of this encounter Procedures Procedure Name Priority Date/Time Associated Diagnosis Comments DERMATOPATHOLOGY Routine 11/25/2023 10:4 4 AM CDT documented in this encounter Results * DERMATOPATHOLOGY (11/25/2023 10:44 AM CDT) Case Report Dermatopathology Report Case: [id number] Authorizing Provider: Bety Gutierrez MD Collected: 11/25/2023 10:44 AM Ordering Location: [facility] - Received: 11/26/2023 07:53 AM DermPath Lab Pathologist: Chasity Coyne MD Specimen: Skin, left lower back 4:16 PM CDT DERMATOPATHOLOGY LABORATORY Final Diagnosis Specimen A. SKIN, left lower back: LENTIGINOUS MELANOCYTIC NEVUS, JUNCTIONAL TYPE, INFLAMED (D22.5) 4:16 PM CDT DERMATOPATHOLOGY LABORATORY at 1616 CDT Clinical History Nevus vs Melanoma; irregular color; brown papule. 4:16 PM CDT DERMATOPATHOLOGY LABORATORY Gross Description Specimen A: Received is one formalin filled container labeled with the patient's name and designated left lower back. The specimen consists of a shave biopsy measuring 7x6x2 mm. Jar 0. 4:16 PM CDT DERMATOPATHOLOGY LABORATORY Microscopic Description Specimen A. SKIN, left lower back: This is a junctional nevus. There is melanin pigment in the stratum corneum. There is a lentiginous proliferation of melanocytes between nests of cells along the dermal-epidermal junction. 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 4:16 PM CDT DERMATOPATHOLOGY LABORATORY Disclaimer An external and internal positive and negative controls are appropriate for the histochemical, immunohistochemical and immunofluorescence stain(s) in this case (if any), except where stated explicitly. The performance characteristics of the stain(s) cited in this report were developed and its performance characteristic determined by the Dermatopathology Laboratory at [facility], directed by Dr. Froy Tay. These tests need not be, and therefore are not, approved by the [place] Food and Drug Administration. The tests are used for clinical purposes. Billing Codes Specimen Charges Stain Charges 47367 1 4:16 PM CDT DERMATOPATHOLOGY LABORATORY Embedded Images 4:16 PM CDT DERMATOPATHOLOGY LABORATORY Pathology/Cytolo gy TISSUE SPECIMEN FROM SKIN / Unknown 11/25/2023 10:44 AM CDT 11/26/2023 7:53 AM CDT Bety Gutierrez MD LAB - PATHOLOGY/CYTOLOGY ORD ERABLES Final Result DERMATOPATHOLOGY LABORATORY [facility] - Department of Dermatology [facility] Medicine [address] [place] [address], [address] [phone] documented in this encounter Visit Diagnoses Not on filedocumented in this encounter Care Teams Professor Of Law Relationship Specialty Start Date End Date Faith Hernandez MD PCP - General Internal Medicine 07/22/16 Fitz Shipman MD Urology 07/22/16 documented as of this encounter
== END 2025-05-18 12:33 | disposition home or self-care (01) ==
LOC: CHSIMG 12:37
PROVIDERS: PCP Internal Medicine
DX: N18.9 Chronic kidney disease, unspecified (principal)
CPT/HCPCS: 76770